=== PATIENT | female | born 1955 | race Caucasian/White ===

== ENCOUNTER 2024-08-29 10:48 | Outpatient (CLI) | payer MEDICARE, SELFPAY ==
--- NOTE | 2024-08-29 10:57 | XR_ITS ---
WS: [id number] Exam: XR lumbar spine f/e only [id number] Date/Time of Exam: 08/29/2024 11:04 AM Reason For Exam: LUMBAGO W/L SIDE SCIATICA/CHRONIC PAIN No fracture or malalignment. Mild degenerative anterolisthesis of L4 on L5 which shows very little ch maureen in flexion or extension. No other sign of instability. Degenerative disc narrowing at all levels most marked at L5-S1. Facet arthropathy from L3-S1. Extensive aortoiliac atherosclerosis. XR/XR lumbar spine f/e only [id number] IMPRESSION: 1. Mild degenerative anterolisthesis of L4 on L5 showing no significant change in flexion or extension. 2. Degenerative changes as above.
== END 2024-08-29 10:49 | disposition home or self-care (01) ==
LOC: RAD 10:54
PROVIDERS: PCP Nurse Practitioner; Visit Provider Nurse Practitioner
DX: M51.360 Other intervertebral disc degeneration, lumbar region with discogenic back pain only (principal); M47.896 Other spondylosis, lumbar region; M47.898 Other spondylosis, sacral and sacrococcygeal region; I70.8 Atherosclerosis of other arteries
CPT/HCPCS: 72120

== ENCOUNTER 2024-09-13 14:14 | Outpatient (CLI) | payer MEDICARE, SELFPAY ==
--- NOTE | 2024-09-13 14:19 | MR_ITS ---
WS: [id number] MRI LUMBAR SPINE NONCONTRAST TECHNIQUE: Sagittal T1, T2 and STIR imaging. Axial T1 and T2 imaging. CLINICAL INFORMATION: DENGERATION OF INTERVERTEBRAL DISC COMPARISON: None. FINDINGS: Mild lumbar curve. No acute compression. Slight anterolisthesis L4 on L5. Disc bulging worse at L2-L3 L3-L4 L4-L5. Mild central canal stenosis on the cervical spine inspecting supervisor imaging at C3-C6 with small dis c protrusions. Additional small central protrusions in the thoracic spine at T6-T8 with slight contac t of the thoracic cord. L1-L2: Normal. L2-L3: Mild disc bulging with slight narrowing of the RIGHT greater than LEFT subarticular recess. Mi ld facet arthropathy. Tiny RIGHT foraminal protrusion with mild RIGHT greater than LEFT foraminal shira rowing. L3-L4: Subarticular disc bulging with impingement on traversing L4 nerve roots and mild central canal stenosis. Small RIGHT foraminal protrusion with mild to moderate RIGHT foraminal narrowing. Mild LEF T foraminal narrowing. Moderate facet arthropathy. L4-L5: Grade 1 anterolisthesis. Impingement LEFT subarticular recess and traversing LEFT L5 nerve shakira t. Mild central canal stenosis. Moderate facet arthropathy. Mild LEFT and no significant RIGHT forami nal narrowing. L5-S1: Slight anterolisthesis. Slight effacement of the ventral thecal sac with mild disc bulging. Mo derate facet arthropathy. Foramen are patent. Visualized pelvic bony structures: Normal. Paravertebral soft tissues: Normal. MR/MR lumbar spine wo con* [id number] IMPRESSION: 1. Grade 1 anterolisthesis L4 and L5 2. Mild central canal stenosis L4-5 with impingement on the LEFT subarticular recess and traversing LEFT L5 nerve root. Mild LEFT foraminal narrowing. 3. Subarticular disc bulging L3-4 with mild central canal stenosis and mild to moderate RIGHT foraminal narrowing. 4. Mild central canal stenosis L2-3 with slight impingement on the RIGHT subar ticular recess with mild RIGHT foraminal narrowing. 5. Moderate facet arthropathy L4-L5 and L5-S1. 6. Small disc protrusions in the cervical and thoracic spine inspecting supervisor imaging mike cribed above.
== END 2024-09-13 14:15 | disposition home or self-care (01) ==
LOC: RAD 14:14
PROVIDERS: PCP Nurse Practitioner; Visit Provider Nurse Practitioner
DX: M51.372 Other intervertebral disc degeneration, lumbosacral region with discogenic back pain and lower extremity pain (principal); M43.16 Spondylolisthesis, lumbar region; M48.061 Spinal stenosis, lumbar region without neurogenic claudication; M51.369 Other intervertebral disc degeneration, lumbar region without mention of lumbar back pain or lower extremity pain; M47.897 Other spondylosis, lumbosacral region; M47.896 Other spondylosis, lumbar region; R93.89 Abnormal findings on diagnostic imaging of other specified body structures
CPT/HCPCS: 72148